=== PATIENT | female | born 1995 | race Caucasian/White ===

== ENCOUNTER → 2021-03-21 07:55 | Outpatient (CLI) | payer BC, SELFPAY ==
[2021-03-21 09:40] LABS: INR 1.3 (0.9-1.3); Prothrombin Time 14.9 SECONDS (10.1-12.7)
[2021-03-21 09:53] LABS: Cholesterol 161 mg/dL (140-199); Glucose 94 mg/dL (70-100); HDL Cholesterol 64 mg/dL (40-60); LDL Cholesterol Calculated 84 mg/dL (<100); Triglycerides 63 mg/dL (35-150)
== END ==
PROVIDERS: Referring Provider Family Medicine; Visit Provider Family Medicine
DX: Z13.1 Encounter for screening for diabetes mellitus (principal); Z13.220 Encounter for screening for lipoid disorders; Z83.2 Family history of diseases of the blood and blood-forming organs and certain disorders involving the immune mechanism
CPT/HCPCS: 36415; 80061; 82947; 85610